=== PATIENT | male | born 1990 | race African-American/Black ===

== ENCOUNTER 2016-07-19 11:11 | Emergency (ER) | payer MEDICAID ==
--- NOTE | 2016-07-19 11:37 | ER Document Report ---
ED Medical Screen (RME) - General Chief Complaint: Chest Pain Stated Complaint: CHEST PAIN Notes: Patient says he is having pain under the left nipple of his chest for the past 5 days. It's a sharp pain that is worse when he moves or takes a deep breath. Has never had this previously. Recalls no injury or unusual activity. No recent cough or cold or chest congestion. No fevers. No leg pain or swelling and no history of blood clots. Negative past medical history. TRAVEL OUTSIDE OF THE [place] IN LAST 30 DAYS: No - Related Data Allergies/Adverse Reactions: No Known Allergies Allergy (Verified 07/19/16 11:14) Past Medical History Neurological Medical History: Reports: Hx Seizures - 2 previously Renal/ Medical History: Denies: Hx Peritoneal Dialysis Psychiatric Medical History: Reports: Hx Depression - Immunizations Immunizations up to date: Yes Hx Diphtheria, Pertussis, Tetanus Vaccination: Yes Physical Exam - Vital signs Vitals: Temp Pulse Resp BP Pulse Ox 97.9 F 73 20 106/72 100 07/19/16 11:24 07/19/16 11:24 07/19/16 11:24 07/19/16 11:24 07/19/16 11:24 Course - Vital Signs Vital signs: Temp Pulse Resp BP Pulse Ox 97.9 F 73 20 106/72 100 07/19/16 11:24 07/19/16 11:24 07/19/16 11:24 07/19/16 11:24 07/19/16 11:24
--- NOTE | 2016-07-19 11:54 | ER Document Report ---
HPI - HPI Patient complains to provider of: left chest pain Pain Level: 4 Context: 26 yo smoker non diabetic, non hypertensive male c/o new sharp stabbing left chest pain under the left nipple of his chest for the past 5 days. Worse when he moves or takes a deep breath. no hx of this, nor injury or unusual activity. No recetn URI. No fever or chjills. No leg swelling or pain, NO hx PER or DVT. No family hx CAD. Associated Symptoms: None Exacerbated by: Movement, Deep breathing Relieved by: Denies Similar symptoms previously: No Recently seen / treated by doctor: No - ROS ROS below otherwise negative: Yes Systems Reviewed and Negative: Yes All other systems reviewed and negative - REPRODUCTIVE Reproductive: DENIES: : - DERM Skin Color: Normal Past Medical History - General Information source: Patient - Social History Smoking Status: Current Every Day Smoker Frequency of alcohol use: None Drug Abuse: Marijuana Lives with: Family Family History: Reviewed & Not Pertinent Patient has suicidal ideation: No Patient has homicidal ideation: No Neurological Medical History: Reports: Hx Seizures - 2 previously Renal/ Medical History: Denies: Hx Peritoneal Dialysis Psychiatric Medical History: Reports: Hx Depression Surgical Hx: Negative - Immunizations Immunizations up to date: Yes Hx Diphtheria, Pertussis, Tetanus Vaccination: Yes Vertical Provider Document - CONSTITUTIONAL Agree With Documented VS: Yes Exam Limitations: No Limitations General Appearance: No Apparent Distress - INFECTION CONTROL TRAVEL OUTSIDE OF THE [place] IN LAST 30 DAYS: No - HEENT HEENT: Normal ENT Exam - NECK Neck: Supple. negative: Lymphadenopathy-Left, Lymphadenopathy-Right - RESPIRATORY Respiratory: Breath Sounds Normal, No Respiratory Distress O2 Sat by Pulse Oximetry: 100 - CARDIOVASCULAR Cardiovascular: Regular Rate, Regular Rhythm - GI/ABDOMEN Gastrointestinal: Abdomen Soft, Abdomen Non-Tender, No Organomegaly - MUSCULOSKELETAL/EXTREMETIES Musculoskeletal/Extremeties: MAEW, FROM, Tender - left pectoral muscle - NEURO Level of Consciousness: Awake, Alert Motor/Sensory: No Motor Deficit, No Sensory Deficit - DERM Integumentary: Warm, Dry, No Rash Course - Re-evaluation Re-evalutation: 07/19/16 12:28 EKG NSR, chest xray negative - Vital Signs Vital signs: Temp Pulse Resp BP Pulse Ox 97.9 F 73 20 106/72 100 07/19/16 11:24 07/19/16 11:24 07/19/16 11:24 07/19/16 11:24 07/19/16 11:24 Discharge - Discharge Clinical Impression: Left-sided chest wall pain Condition: Good Disposition: HOME, SELF-CARE Instructions: Anti-Inflammatory Medication (H), Chest Wall Pain ([facility]), Ultram ([facility]) Additional Instructions: warm compress tylenol motrin to er if worse see family practice doctor for routine care Please complete the patient satisfaction survey if you get one, and return it.. If you do not receive a survey, then you can go to the [facility] website, [email or web address] and place your comments about your very good care. Thank you very much. It was a pleasure being your medical provider today. Prescriptions: Ibuprofen [Motrin 800 mg Tablet] 800 mg PO Q8HP PRN #30 tablet PRN Reason: Tramadol HCl [Ultram 50 mg Tablet] 50 mg PO ASDIR PRN #15 tablet PRN Reason: Forms: Return to Work
[2016-07-19 12:38] VITALS: BP 119/61
--- NOTE | 2016-07-19 20:04 | EKG REPORT ---
SEVERITY:- NORMAL ECG - SINUS RHYTHM : Confirmed by: Katie Llanos MD 19-Jul-2016 20:03:52
== END 2016-07-19 12:37 | disposition home or self-care (01) ==
LOC: ER 11:11
DX: R07.89 Other chest pain (principal); F17.200 Nicotine dependence, unspecified, uncomplicated
CPT/HCPCS: 71020; 93005; 93010; 99285

== ENCOUNTER 2017-05-06 05:41 | Emergency (ER) | payer SELFPAY ==
[2017-05-06 05:54] VITALS: BP 128/57
[2017-05-06] MEDS ORDERED: BUPIVACAINE HCL 0.5 % INJ/PF 30 ML SDV INJ ONE (06:40)
--- NOTE | 2017-05-06 07:11 | ER Document Report ---
ED General - General Chief Complaint: Toothache Stated Complaint: MOUTH PAIN Time Seen by Provider: 05/06/17 06:09 Mode of Arrival: Ambulatory Information source: Patient Notes: 26-year-old male presents with complaints of dental pain, patient notes pain has been going on for a few days. Denies any fevers or chills denies any facial swelling patient appears intoxicated TRAVEL OUTSIDE OF THE [place] IN LAST 30 DAYS: No - HPI Onset: Other Onset/Duration: Persistent Quality of pain: Achy Severity: Mild Pain Level: 1 Associated symptoms: Other Exacerbated by: Food, Other Relieved by: Denies Similar symptoms previously: No Recently seen / treated by doctor: No - Related Data Allergies/Adverse Reactions: No Known Allergies Allergy (Verified 07/19/16 11:14) Past Medical History - Social History Smoking Status: Current Every Day Smoker Cigarette use (# per day): Yes Chew tobacco use (# tins/day): No Smoking Education Provided: No Frequency of alcohol use: Social Drug Abuse: None Family History: Reviewed & Not Pertinent Patient has suicidal ideation: No Patient has homicidal ideation: No Neurological Medical History: Reports: Hx Seizures - 2 previously d/t medication abuse Renal/ Medical History: Denies: Hx Peritoneal Dialysis Psychiatric Medical History: Reports: Hx Depression - Immunizations Immunizations up to date: Yes Hx Diphtheria, Pertussis, Tetanus Vaccination: Yes Review of Systems - Review of Systems Notes: REVIEW OF SYSTEMS: CONSTITUTIONAL : Denies fever, chills, or sweats. Denies recent illness. EENT: Admits to dental pain CARDIOVASCULAR: Denies chest pain. Denies palpitations or racing or irregular heart beat. Denies ankle edema. RESPIRATORY: Denies cough, cold, or chest congestion. Denies shortness of breath, difficulty breathing, or wheezing. GASTROINTESTINAL: Denies abdominal pain or distention. Denies nausea, vomiting , or diarrhea. Denies blood in vomitus, stools, or per rectum. Denies black, tarry stools. Denies constipation. GENITOURINARY: Denies difficulty urinating, painful urination, burning, frequency, blood in urine, or discharge. MUSCULOSKELETAL: Denies back or neck pain or stiffness. Denies joint pain or swelling. SKIN: Denies rash, lesions or sores. HEMATOLOGIC : Denies easy bruising or bleeding. LYMPHATIC: Denies swollen, enlarged glands. NEUROLOGICAL: Denies confusion or altered mental status. Denies passing out or loss of consciousness. Denies dizziness or lightheadedness. Denies headache. Denies weakness or paralysis or loss of use of either side. Denies problems with gait or speech. Denies sensory loss, numbness, or tingling. Denies seizures. PSYCHIATRIC: Denies anxiety or stress. Denies depression, suicidal ideation, or homicidal ideation. ALL OTHER SYSTEMS REVIEWED AND NEGATIVE. Dictation was performed using [employer] voice recognition software PHYSICAL EXAMINATION: GENERAL: Well-appearing, well-nourished and in no acute distress. Patient is drowsy but easily arousable HEAD: Atraumatic, normocephalic. EYES: Pupils equal round and reactive to light, extraocular movements intact, sclera anicteric, conjunctiva are normal. ENT: Teeth 4-5 tenderness to palpation no obvious abscess NECK: Normal range of motion, supple without lymphadenopathy LUNGS: Breath sounds clear to auscultation bilaterally and equal. No wheezes rales or rhonchi. HEART: Regular rate and rhythm without murmurs ABDOMEN: Soft, nontender, nondistended abdomen. No guarding, no rebound. No masses appreciated. Musculoskeletal: Normal range of motion, no pitting or edema. No cyanosis. NEUROLOGICAL: Cranial nerves grossly intact. Normal speech, normal gait. Normal sensory, motor exams PSYCH: Normal mood, normal affect. SKIN: Warm, Dry, normal turgor, no rashes or lesions noted. Physical Exam - Vital signs Vitals: Temp Pulse Resp BP Pulse Ox 97.9 F 98 18 128/57 H 98 05/06/17 05:53 05/06/17 05:53 05/06/17 05:53 05/06/17 05:53 05/06/17 05:53 Course - Re-evaluation Re-evalutation: 05/06/17 08:24 Airways patent physical examination is consistent with tender teeth on palpation consistent with infectious process caries, patient otherwise looks well is in no distress, his family member brought the patient in and they will be driving him home. A infraorbital nerve block was performed with complete resolution of patient's pain After performing a Medical Screening Examination, I estimate there is LOW risk for a DEEP SPACE INFECTION (e.g., AMITA'S ANGINA OR RETROPHARYNGEAL ABSCESS), MENINGITIS, INTRACRANIAL HEMORRHAGE, or AIRWAY COMPROMISE, thus I consider the discharge disposition reasonable. Also, there is no evidence or peritonitis, sepsis, or toxicity. I have reevaluated this patient multiple times and no significant life threatening changes are noted. The patient and I have discussed the diagnosis and risks, and we agree with discharging home with close follow-up with the understanding that symptoms and presentations can change. We also discussed returning to the Emergency Department immediately if new or worsening symptoms occur. We have discussed the symptoms which are most concerning (e.g., changing or worsening pain, trouble swallowing or breathing, neck stiffness or fever) that necessitate immediate return. - Vital Signs Vital signs: Temp Pulse Resp BP Pulse Ox 97.9 F 98 18 128/57 H 98 05/06/17 05:53 05/06/17 05:53 05/06/17 05:53 05/06/17 05:53 05/06/17 05:53 Procedures - Additional Procedures infraorbital nerve block Time performed: 07:15 - right sided infraorbital nerbve block compelte with 10 cc of 0.5% sensorcaine with no complications Discharge - Discharge Clinical Impression: Pain, dental, Dental caries Condition: Stable Disposition: HOME, SELF-CARE Instructions: [facility], Toothache ([facility]) Prescriptions: Naproxen 500 mg PO Q8 #14 tablet Penicillin V Potassium [Penicillin Vk 250 mg Tablet] 500 mg PO Q6 10 Days #40 tablet
== END 2017-05-06 07:22 | disposition home or self-care (01) ==
LOC: ER 05:41
PROC: 3E0T3BZ Introduction of Anesthetic Agent into Peripheral Nerves and Plexi, Percutaneous Approach (ICD-10-PCS; principal; 2017-05-06)
DX: K02.9 Dental caries, unspecified (principal); F17.210 Nicotine dependence, cigarettes, uncomplicated
CPT/HCPCS: 99282

== ENCOUNTER 2018-10-17 03:56 | Emergency (ER) | payer SELFPAY ==
[2018-10-17] MEDS ORDERED: ACETAMINOPHEN 325 MG TABLET PO ONE (06:04)
[2018-10-17] MEDS ORDERED: DEXAMETHASONE SOD PHOS INJ 10 MG/1 ML VIAL IM ONE (06:04)
[2018-10-17] MEDS ORDERED: NYSTATIN/DEXAMETH/DIPHEN SUSP 120 ML PO ONE ×2 (06:04→06:29)
[2018-10-17] MEDS ORDERED: IBUPROFEN 600 MG TABLET PO ONE (06:04)
--- NOTE | 2018-10-17 06:07 | ER Document Report ---
Addendum entered and electronically signed by LESLIE RODRIGUEZ PA-C 10/17/18 07:10: Discharge - Discharge Clinical Impression: Sore throat Condition: Good Disposition: HOME, SELF-CARE Additional Instructions: Your strep test is negative. Your symptoms are likely due to an viral infection and will resolve in the next 1-2 weeks. You have also been given a dose of steroids to help with your throat discomfort. Please continue to take ibuprofen 600 mg every 6 hours or Tylenol 1000 mg every 6 hours as needed for throat discomfort. You can also gargle with salt water. Continue to drink plenty of fluids. Follow-up with your primary care doctor in the next several days. Return if you become unable to swallow, have difficulty breathing, pass out, have persistent vomiting that prevents you from being able to tolerate fluids, or have any other symptoms that are concerning to you. Forms: Return to Work Original Note: HPI - HPI Patient complains to provider of: sore throat Time Seen by Provider: 10/17/18 05:56 Pain Level: 4 Context: 28-year-old healthy male presents to the emergency department with chief complaint of a sore throat x3 days. He said he noticed that it was starting to get a little scratchy on Sunday and has gotten progressively worse to the point now where he is having difficulty swallowing and has tender lymph nodes on the right side. He is able to handle his secretions. He denies fevers or chills, denies photophobia, denies neck stiffness, denies shortness of breath or chest pain, denies rhinorrhea or cold-like symptoms, denies abdominal pain, denies nausea/vomiting/diarrhea/constipation. No other complaints. - REPRODUCTIVE Reproductive: DENIES: : Past Medical History - Social History Smoking Status: Unknown if Ever Smoked Family History: Reviewed & Not Pertinent Neurological Medical History: Reports: Hx Seizures - 2 previously d/t medication abuse Renal/ Medical History: Denies: Hx Peritoneal Dialysis Psychiatric Medical History: Reports: Hx Depression - Immunizations Immunizations up to date: Yes Hx Diphtheria, Pertussis, Tetanus Vaccination: Yes Vertical Provider Document - CONSTITUTIONAL Notes: PHYSICAL EXAMINATION: Reviewed vital signs and charting by RN GENERAL: Alert, interacts well. No acute distress. HEAD: Normocephalic, atraumatic. EYES: Pupils equal and round. Extraocular movements intact. ENT: Oral mucosa moist, tongue midline. Group tonsillar hypertrophy in the right side, 1+ tonsillar hypertrophy right side, erythematous on the right side with a small on the right tonsil, uvula midline, no evidence of a [employer] NECK: Full range of motion. Trachea midline. LUNGS: Clear to auscultation bilaterally, no wheezes, rales, or rhonchi. No respiratory distress. HEART: Regular rate and rhythm. No murmur ABDOMEN: soft, non-tender. No distention. Bowel sounds present EXTREMITIES: Moves all 4 extremities spontaneously. No edema, No cyanosis. PSYCH: Normal affect, normal mood. SKIN: Warm, dry, normal turgor. No rashes or lesions noted. - INFECTION CONTROL TRAVEL OUTSIDE OF THE [place] IN LAST 30 DAYS: No Course - Re-evaluation Re-evalutation: 10/17/18 07:02 RPresentation of several days of sore throat in an otherwise well-appearing patient. Rapid strep is negative. History and exam are not consistent with a retropharyngeal abscess or peritonsillar abscess. Airway is patent. No difficulty handling oral secretions. Vitals within normal limits. Patient was treated with a dose of dexamethasone and advised on symptomatic care. Suspect likely viral pharyngitis. At this time will discharge with return precautions and follow-up recommendations. Verbal discharge instructions given a the bedside and opportunity for questions given. Medication warnings reviewed. Patient is in agreement with this plan and has verbalized understanding of return precautions and the need for primary care follow-up in the next 24-72 hours. - Vital Signs Vital signs: Temp Pulse Resp BP Pulse Ox 98.0 F 75 18 138/76 H 100 10/17/18 05:54 10/17/18 05:54 10/17/18 05:54 10/17/18 05:54 10/17/18 05:54 Discharge - Discharge Clinical Impression: Sore throat Condition: Good Disposition: HOME, SELF-CARE Additional Instructions: Your strep test is negative. Your symptoms are likely due to an viral infection and will resolve in the next 1-2 weeks. You have also been given a dose of steroids to help with your throat discomfort. Please continue to take ibuprofen 600 mg every 6 hours or Tylenol 1000 mg every 6 hours as needed for throat discomfort. You can also gargle with salt water. Continue to drink plenty of fluids. Follow-up with your primary care doctor in the next several days. Return if you become unable to swallow, have difficulty breathing, pass out, have persistent vomiting that prevents you from being able to tolerate fluids, or have any other symptoms that are concerning to you.
[2018-10-17 07:31] VITALS: BP 117/63
== END 2018-10-17 07:34 | disposition home or self-care (01) ==
LOC: ER 03:56
DX: J02.9 Acute pharyngitis, unspecified (principal); R13.10 Dysphagia, unspecified
CPT/HCPCS: 99283; 96372; 87070; 87880; 87077; J1100; J3490

== ENCOUNTER 2018-11-11 11:03 | Emergency (ER) | payer SELFPAY ==
--- NOTE | 2018-11-11 12:07 | ER Document Report ---
HPI - HPI Time Seen by Provider: 11/11/18 12:02 Pain Level: 3 Notes: Patient is an otherwise healthy 28-year-old male presented to the emergency department chief complaint of dysuria. Patient reports symptoms have been going on for 3 days. He denies any penile discharge. He also reports mild low back pain. He thinks he has a urinary tract infection. Patient denies possibility of any STDs, states he was tested 3 months ago. He denies any new partners. - REPRODUCTIVE Reproductive: DENIES: : Past Medical History - General Information source: Patient - Social History Smoking Status: Never Smoker Frequency of alcohol use: None Drug Abuse: None Family History: Reviewed & Not Pertinent Neurological Medical History: Reports: Hx Seizures - 2 previously d/t medication abuse Renal/ Medical History: Denies: Hx Peritoneal Dialysis Psychiatric Medical History: Reports: Hx Depression - Immunizations Immunizations up to date: Yes Hx Diphtheria, Pertussis, Tetanus Vaccination: Yes Vertical Provider Document - CONSTITUTIONAL Notes: PHYSICAL EXAMINATION: GENERAL: Well-appearing, well-nourished and in no acute distress. HEAD: Atraumatic, normocephalic. EYES: Pupils equal round and reactive to light, extraocular movements intact, sclera anicteric, conjunctiva are normal. ENT: Nares patent, oropharynx clear without exudates. Moist mucous membranes. NECK: Normal range of motion, supple without lymphadenopathy LUNGS: Breath sounds clear to auscultation bilaterally and equal. No wheezes rales or rhonchi. HEART: Regular rate and rhythm without murmurs ABDOMEN: Soft, nontender, nondistended abdomen. No guarding, no rebound. No masses appreciated. Musculoskeletal: Normal range of motion, no pitting or edema. No cyanosis. NEUROLOGICAL: Cranial nerves grossly intact. Normal speech, normal gait. Normal sensory, motor exams PSYCH: Normal mood, normal affect. SKIN: Warm, Dry, normal turgor, no rashes or lesions noted. - INFECTION CONTROL TRAVEL OUTSIDE OF THE [place] IN LAST 30 DAYS: No Course - Re-evaluation Re-evalutation: Patient appears well, nontoxic, alert, oriented and answering all questions appropriately. He has no CVA tenderness. He is afebrile and all other vital signs are within normal limits. Urinalysis appears normal. Chlamydia and gonorrhea testing are still pending. Patient declines prophylactic treatment. He will be started on a 3-day course of antibiotics for cystitis. Urine culture pending. - Vital Signs Vital signs: Temp Pulse Resp BP Pulse Ox 97.3 F 86 17 126/55 H 99 11/11/18 11:34 11/11/18 11:34 11/11/18 11:34 11/11/18 11:34 11/11/18 11:34 Discharge - Discharge Clinical Impression: Cystitis Condition: Stable Disposition: HOME, SELF-CARE Additional Instructions: Your urine does not appear to be grossly infected. Considering you are having symptoms consistent with a UTI I will start you on a 3-day course of antibiotics pending the urine culture. You have declined prophylactic treatment for STDs. Someone will call you if there is any abnormality with any of your testing. Please follow-up with your primary care provider, return to the emergency department if you develop worsening symptoms to include worsening abdominal pain, back pain, development of fever or persistent vomiting. Prescriptions: Cephalexin [Cephalexin 500 MG Tablet] 500 mg PO BID #6 tab
[2018-11-11 12:25] LABS: APPEARANCE,URINE CLEAR; BILIRUBIN,URINE NEGATIVE (NEGATIVE); COLOR,URINE COLORLESS; GLUCOSE, URINE NEGATIVE (NEGATIVE); KETONES,URINE NEGATIVE (NEGATIVE); LEUKOCYTE ESTERASE,URINE NEGATIVE (NEGATIVE); NITRITE,URINE NEGATIVE (NEGATIVE); PROTEIN,URINE NEGATIVE (NEGATIVE); URINE SPECIFIC GRAVITY 1.002; UROBILINOGEN,URINE NEGATIVE mg/dL (<2.0)
[2018-11-11 13:51] VITALS: BP 119/70
[2018-11-11 13:56] LABS: CHLAM PCR NOT DETECTED (NOT DETECT)
== END 2018-11-11 14:11 | disposition home or self-care (01) ==
LOC: ER 11:03
DX: N30.00 Acute cystitis without hematuria (principal); R30.0 Dysuria; M54.5 Low back pain
CPT/HCPCS: 81001; 87491; 87591; 99283

== ENCOUNTER 2019-01-28 04:16 | Observation (INO) | payer SELFPAY ==
[2019-01-28] MEDS ORDERED: KETOROLAC TROMETHAMINE INJ/PF 30 MG/1 ML SDV IV ONE (05:16)
--- NOTE | 2019-01-28 05:17 | ER Document Report ---
ED Medical Screen (RME) - General Chief Complaint: Epigastric Pain Stated Complaint: LEFT ARM PAIN Time Seen by Provider: 01/28/19 05:11 Notes: 28-year-old male with chief complaint of swelling and tenderness in the left antecubital area that has worsened over the past 48 hours. He denies recent IV drug abuse but does report a history of IV drug abuse, denies that he thinks the needle is in the arm. He also states he has been getting intermittent pains in his chest. He denies fever, nausea or vomiting, other complaints. He denies any diagnosed medical history. TRAVEL OUTSIDE OF THE [place] IN LAST 30 DAYS: No - Related Data Allergies/Adverse Reactions: No Known Allergies Allergy (Verified 07/19/16 11:14) Past Medical History Neurological Medical History: Reports: Hx Seizures - 2 previously d/t medication abuse Renal/ Medical History: Denies: Hx Peritoneal Dialysis Psychiatric Medical History: Reports: Hx Depression - Immunizations Immunizations up to date: Yes Hx Diphtheria, Pertussis, Tetanus Vaccination: Yes Physical Exam - Extremities General upper extremity: Other - Swelling in the left antecubital area with tenderness and warmth. Difficulty straightening the arm at the elbow into full extension. Normal distal neurovascular exam Course - Re-evaluation Re-evalutation: I have greeted and performed a rapid initial assessment of this patient. A comprehensive ED assessment and evaluation of the patient, analysis of test results and completion of the medical decision making process will be conducted by additional ED providers.
[2019-01-28 06:02] LABS: ABSOLUTE EOSINOPHILS # (AUTO) 0.4 10^3/uL (0.0-0.6); ABSOLUTE LYMPHOCYTES (AUTO) 1.3 10^3/uL (0.5-4.7); ABSOLUTE MONOCYTES (AUTO) 0.5 10^3/uL (0.1-1.4); ABSOLUTE NEUT (AUTO) 3.2 10^3/uL (1.7-8.2); BASOPHILS % (AUTO) 0.4 % (0-2); EOSINOPHILS % (AUTO) 6.9 % (0-6); HEMATOCRIT 38.6 % (37.9-51.0); HEMOGLOBIN 13.1 g/dL (13.5-17.0); LYMPHOCYTES % (AUTO) 24.2 % (13-45); MEAN CORPUSCULAR HEMOGLOBIN 32.5 pg (27.0-33.4); MEAN CORPUSCULAR HGB CONC 33.8 g/dL (32.0-36.0); MEAN CORPUSCULAR VOLUME 96 fl (80-97); MONOCYTES % (AUTO) 8.9 % (3-13); PLATELET COUNT 251 10^3/uL (150-450); RED BLOOD COUNT 4.02 10^6/uL (4.35-5.55); RED CELL DISTRIBUTION WIDTH 13.2 % (11.5-14.0); SEGMENTED NEUTROPHILS % (AUTO) 59.6 % (42-78); TOTAL CELLS COUNTED % (AUTO) 100 %; WHITE BLOOD COUNT 5.4 10^3/uL (4.0-10.5)
--- NOTE | 2019-01-28 06:30 | RADIOLOGY REPORT (SQ) ---
EXAM DESCRIPTION: XR CHEST 1 VIEW COMPLETED DATE/TME: 01/28/2019 05:15 CLINICAL HISTORY: chest pain COMPARISON: 07/19/2016 FINDINGS: Single frontal view of the chest. Cardiomediastinal silhouette: Normal size and contour. Lungs: No consolidation, pneumothorax, or pleural effusion. Bones: No acute osseous abnormality. Upper abdomen: No abnormality identified. IMPRESSION: 1. No acute pulmonary process identified.
--- NOTE | 2019-01-28 06:32 | RADIOLOGY REPORT (SQ) ---
EXAM DESCRIPTION: XR ELBOW 3 VIEWS COMPLETED DATE/TME: 01/28/2019 05:15 CLINICAL HISTORY: 28 years, Male, swelling, pain; needle in arm? COMPARISON: None. FINDINGS: 3 views of the left elbow. No acute fracture or dislocation. Normal osseous mineralization. No definite joint effusion. Edema in the ventral subcutaneous soft tissues. No radiopaque foreign body. IMPRESSION: 1. No acute fracture. 2. Edema in the ventral subcutaneous soft tissues. No radiopaque foreign body. copyright 2010 [employer]- All Rights Reserved
[2019-01-28] MEDS ORDERED: RINGERS SOLUTION,LACTATED 1,000 ML IV ONE (06:51)
[2019-01-28 06:56] LABS: ALBUMIN 3.4 g/dL (3.5-5.0); ALKALINE PHOSPHATASE 60 U/L (38-126); ANION GAP 7 (5-19); ASPARTATE AMINO TRANSFERASE 25 U/L (17-59); BILIRUBIN,DIRECT 0.1 mg/dL (0.0-0.4); BILIRUBIN,TOTAL 0.5 mg/dL (0.2-1.3); BLOOD UREA NITROGEN 8 mg/dL (7-20); CALCIUM 8.8 mg/dL (8.4-10.2); CARBON DIOXIDE 26 mmol/L (22-30); CHLORIDE 106 mmol/L (98-107); GLUCOSE 86 mg/dL (75-110); POTASSIUM 4.1 mmol/L (3.6-5.0); TOTAL PROTEIN 6.2 g/dL (6.3-8.2)
--- NOTE | 2019-01-28 07:08 | ER Document Report ---
ED General - General Chief Complaint: Epigastric Pain Stated Complaint: LEFT ARM PAIN Time Seen by Provider: 01/28/19 05:11 TRAVEL OUTSIDE OF THE [place] IN LAST 30 DAYS: No - HPI Context: Patient presents with 2 days of worsening swelling and pain in his left upper extremity antecubital area IV drugs over one year ago. No recent fevers or chills no medical problems. He also has been having intermittent sharp epigastric pain. He denies any chest pain. His last bowel movements 2 days ago no nausea vomiting or diarrhea. No cough or congestion. - Related Data Allergies/Adverse Reactions: No Known Allergies Allergy (Verified 07/19/16 11:14) Past Medical History - Social History Smoking Status: Current Every Day Smoker Family History: Reviewed & Not Pertinent Patient has suicidal ideation: No Patient has homicidal ideation: No Neurological Medical History: Reports: Hx Seizures - 2 previously d/t medication abuse Renal/ Medical History: Denies: Hx Peritoneal Dialysis Psychiatric Medical History: Reports: Hx Depression - Immunizations Immunizations up to date: Yes Hx Diphtheria, Pertussis, Tetanus Vaccination: Yes Review of Systems - Review of Systems Constitutional: No symptoms reported EENT: No symptoms reported Cardiovascular: No symptoms reported Respiratory: See HPI Gastrointestinal: See HPI Genitourinary: No symptoms reported Male Genitourinary: No symptoms reported Musculoskeletal: No symptoms reported Skin: No symptoms reported Hematologic/Lymphatic: No symptoms reported Neurological/Psychological: No symptoms reported Physical Exam - Vital signs Vitals: Temp Pulse Resp BP Pulse Ox 97.6 F 97 18 123/101 H 97 01/28/19 04:30 01/28/19 04:30 01/28/19 04:30 01/28/19 04:30 01/28/19 04:30 - General General appearance: Appears well, Alert - HEENT Head: Normocephalic, Atraumatic - Respiratory Respiratory status: No respiratory distress Chest status: Nontender Breath sounds: Normal Chest palpation: Normal - Cardiovascular Rhythm: Regular Heart sounds: Normal auscultation Murmur: No Friction rub: No Hosea's crunch: No Gallop: None auscultated - Abdominal Inspection: Normal Distension: No distension Bowel sounds: Normal Tenderness: Other - Reproducible sharp epigastric tenderness to palpation. - Back Back: Normal, Nontender - Extremities General upper extremity: Other - Approximately 4 x 3 inch tender fluctuant warm erythematous area over left antecubital area. Bedside ultrasound reveals anechoic area consistent with abscess. General lower extremity: Normal inspection, Normal ROM Course - Re-evaluation Re-evalutation: 01/28/19 07:06 Patient well-appearing with normal vitals no recent fevers chills afebrile. He has a large abscess in his antecubital area. Denies IV drug use for over a year but with his history there is concern this could be related to IV drug use. He denies any fevers chills denies any chest pain he does have reproducible sharp epigastric pain and no chest pain do not feel this is consistent with pericarditis or any other concerning cardiac pathology. He also does not have any friction rub with normal auscultation of his heart. Pending formal ultrasound of his upper extremity at this time and will contact surgery based on results. 01/28/19 09:[address] Yu, he will consult on the patient emergency room and will likely admit based on her conversation - Vital Signs Vital signs: Temp Pulse Resp BP Pulse Ox 97.6 F 97 18 123/101 H 97 01/28/19 04:30 01/28/19 04:30 01/28/19 04:30 01/28/19 04:30 01/28/19 04:30 - Laboratory Result Diagrams: 01/28/19 05:46 01/28/19 06:20 Laboratory results interpreted by me: 01/28/19 01/28/19 05:46 06:20 RBC 4.02 L Hgb 13.1 L Eos % (Auto) 6.9 H Total Protein 6.2 L Albumin 3.4 L Discharge - Discharge Clinical Impression: Abscess Condition: Good Disposition: ADMITTED INPATIENT Admitting Provider: [facility] Unit Admitted: Surgical Floor
--- NOTE | 2019-01-28 07:36 | EKG REPORT ---
SEVERITY:- NORMAL ECG - SINUS RHYTHM : Confirmed by: Sacha Castillo MD 28-Jan-2019 07:35:59
--- NOTE | 2019-01-28 08:29 | RADIOLOGY REPORT (SQ) ---
EXAM DESCRIPTION: U/S EXTREMITY NONVASCULAR LTD COMPLETED DATE/TIME: 01/28/2019 8:11 am REASON FOR STUDY: LUQ abscess, antecubital area COMPARISON: None. TECHNIQUE: Dynamic and static grayscale and color Doppler images of the left antecubital fossa were obtained. LIMITATIONS: None. FINDINGS: There is a heterogeneous fluid collection in the left antecubital fossa that measures 4.1 x 3.5 x 1.9 cm ; there is increased color Doppler flow around the collection and subcutaneous edema. IMPRESSION: Complex fluid collection in the left antecubital fossa with surrounding hyperemia and loyd bcutaneous edema. The collection is concerning for an abscess. TECHNICAL DOCUMENTATION: JOB ID: [id number] [employer]- All Rights Reserved Reading location - IP/workstation name: [email or web address]
[2019-01-28] MEDS ORDERED: VANCOMYCIN HCL INJ 1000 MG VIAL IV ONE (09:33)
[2019-01-28] MEDS ORDERED: PIPERACILLIN/TAZOBACTAM 3.375 GM VIAL IV ONE (09:33)
--- NOTE | 2019-01-28 11:32 | RADIOLOGY REPORT (SQ) ---
EXAM DESCRIPTION: CTA CHEST COMPLETED DATE/TIME: 01/28/2019 11:14 am REASON FOR STUDY: IV drug use, chest pain COMPARISON: None. TECHNIQUE: CT scan of the chest performed using helical scanning technique with dynamic intravenous contrast injection. Images reviewed with lung, soft tissue and bone windows. Reconstructed coronal and sagittal MPR images reviewed. Additional 3 dimensional post-processing performed to develop Maximal Intensity Projection images (PR P). All images stored on PACS. All CT scanners at this facility use dose modulation, iterative reconstruction, and/or weight based d osing when appropriate to reduce radiation dose to as low as reasonably achievable (ALARA). [facility]: Dose Right [facility]: CareDose [facility]: Dose Right [facility]: Teradose 4D [facility]: [employer] CONTRAST TYPE AND DOSE: contrast/concentration: Isovue 350.00 mg/ml; Total Contrast Delivered: 55.0 ml; Total Saline Delivered: 70.0 ml Contrast bolus optimized for the pulmonary arteries. Not diagnostic for the aorta. RENAL FUNCTION: None required. The patient is less than 50 years old. RADIATION DOSE: CT Rad equipment meets quality standard of care and radiation dose reduction techniq ues were employed. CTDIvol: 9.9 - 14.3 mGy. DLP: 575 mGy-cm. . LIMITATIONS: None. FINDINGS: LUNGS AND PLEURA: No masses, infiltrates, or pneumothorax. No pleural effusions or pleura l calcifications. AORTA AND GREAT VESSELS: No aneurysm. Contrast bolus not optimized for the aorta. HEART: No pericardial effusion. No significant coronary artery calcifications. PULMONARY ARTERIES: No emboli visualized in the main pulmonary arteries or the segmental branches. HILAR AND MEDIASTINAL STRUCTURES: No identified masses or abnormal nodes. HARDWARE: None in the chest. UPPER ABDOMEN: No significant findings. Limited exam. THYROID AND OTHER SOFT TISSUES: No masses. No adenopathy. BONES: No acute or significant finding. 3D MIPS: Confirm above findings. OTHER: No other significant finding. IMPRESSION: Negative examination for pulmonary embolism. COMMENT: Quality ID # [id number]: Final reports with documentation of one or more dose reduction techniques (e.g., Automated exposure control, adjustment of the mA and/or kV according to patient size, use of iterative reconstruction technique) TECHNICAL DOCUMENTATION: JOB ID: [id number] [employer]- All Rights Reserved Reading location - IP/workstation name: [email or web address]
[2019-01-28 12:41] LABS: URINE AMPHETAMINES SCREEN NEGATIVE; URINE BARBITURATES SCREEN NEGATIVE; URINE BENZODIAZEPINES SCREEN NEGATIVE; URINE COCAINE SCREEN UNCONFIRMED POSITIVE; URINE MARIJUANA (THC) SCREEN NEGATIVE; URINE METHADONE SCREEN NEGATIVE; URINE PHENCYCLIDINE SCREEN NEGATIVE
--- NOTE | 2019-01-28 13:00 | PDOC H&P ---
History of Present Illness Admission Date/PCP: 01/28/19 09:50 Patient complains of: Pain at the antecubital fossa of the left arm History of Present Illness: CARY PARK is a 28 year old male presenting with couple day history of swelling and tenderness and pain at the left antecubital fossa. Uncertain of the etiology. Patient denies any IV drug abuse. he denies any fever nor chills. He does complain of intermittent sharp lower chest pain without short ness of breath. Past Medical History Medical History: None Neurological Medical History: Reports: Seizures - 2 previously d/t medication abuse Psychiatric Medical History: Reports: Depression Past Surgical History Past Surgical History: Reports: None Social History Smoking Status: Current Every Day Smoker Frequency of Alcohol Use: Social Hx Recreational Drug Use: Yes Drugs: Marijuana Hx Prescription Drug Abuse: No Family History Family History: Reviewed & Not Pertinent Parental Family History Reviewed: Yes Children Family History Reviewed: Yes Sibling(s) Family History Reviewed.: Yes Medication/Allergy Allergies/Adverse Reactions: No Known Allergies Allergy (Verified 07/19/16 11:14) Review of Systems Cardiovascular: PRESENT: chest pain Integumentary: PRESENT: as per HPI Physical Exam Vital Signs: Temp Pulse Resp BP Pulse Ox 97.6 F 97 18 123/101 H 97 01/28/19 04:30 01/28/19 04:30 01/28/19 04:30 01/28/19 04:30 01/28/19 04:30 Intake & Output 01/27/19 01/28/19 01/29/19 06:59 06:59 06:59 Intake Total 1000 Balance 1000 Weight 72.121 kg General appearance: PRESENT: no acute distress, cooperative Eye exam: PRESENT: conjunctiva pink Neck exam: PRESENT: other - No masses and no tenderness. Respiratory exam: PRESENT: clear to auscultation kenji Cardiovascular exam: PRESENT: RRR GI/Abdominal exam: PRESENT: other - Soft, nondistended, nontender to palpation. Extremities exam: PRESENT: other - Left antecubital fossa region with approximately 5 cm region of erythema with underlying fluctuance and induration and marked tenderness. No petechiae nor splinter hemorrhages. Neurological exam: PRESENT: alert, awake Psychiatric exam: PRESENT: appropriate affect Results Laboratory Results: 01/28/19 05:46 01/28/19 06:20 01/28/19 01/28/1919 05:46 05:46 06:20 WBC 5.4 RBC 4.02 L Hgb 13.1 L Hct 38.6 MCV 96 MCH 32.5 MCHC 33.8 RDW 13.2 Plt Count 251 Seg Neutrophils % 59.6 Sodium Cancelled 139.4 Potassium Cancelled 4.1 Chloride Cancelled 106 Carbon Dioxide Cancelled 26 Anion Gap Cancelled 7 BUN Cancelled 8 Creatinine Cancelled 0.85 Est GFR ( Amer) Cancelled > 60 Est GFR (Non-Af Amer) Cancelled Glucose Cancelled 86 Calcium Cancelled 8.8 Total Bilirubin Cancelled 0.5 AST Cancelled 25 Alkaline Phosphatase Cancelled 60 Total Protein Cancelled 6.2 L Albumin Cancelled 3.4 L Lipase Cancelled 24.8 01/28/19 01/28/19 05:46 06:20 Troponin I Cancelled < 0.012 Impressions: Chest X-Ray 01/28/19 05:15 IMPRESSION: 1. No acute pulmonary process identified. Elbow X-Ray 01/28/19 05:15 IMPRESSION: 1. No acute fracture. 2. Edema in the ventral subcutaneous soft tissues. No radiopaque foreign body. copyright 2010 [employer]- All Rights Reserved Extremity Ultrasound 01/28/19 07:01 IMPRESSION: Complex fluid collection in the left antecubital fossa with surrounding hyperemia and subcutaneous edema. The collection is concerning for an abscess. Assessment & Plan - Diagnosis (1) Abscess Is this a current diagnosis for this admission?: Yes Plan: Abscess at the left antecubital fossa. We will plan debridement in the operating room. I discussed with the patient the risk and benefits of procedure including risk of infection, bleeding, adjacent structure injury such as nerve or vascular injury, prolonged wound healing. Patient understands and agrees to proceed. He adamantly denies IV drug abuse and I do not see any track bradshaw. (2) Chest pain Is this a current diagnosis for this admission?: Yes Plan: EKG and chest CT were unremarkable. We will proceed with his incision and drainage procedure.
--- NOTE | 2019-01-28 13:50 | EKG REPORT ---
SEVERITY:- NORMAL ECG - SINUS RHYTHM : Confirmed by: Sacha Castillo MD 28-Jan-2019 13:50:20
[2019-01-28] MEDS ORDERED: MIDAZOLAM 2 MG/2 ML INJ ONE ×2 (13:55→14:04)
[2019-01-28] MEDS ORDERED: LIDOCAINE 2% INJ-PF (20 MG/ML) 10 ML AMPUL ONE (13:55)
[2019-01-28] MEDS ORDERED: PROPOFOL INJ 200 MG/20 ML VIAL IV ONE ×2 (13:55→15:19)
[2019-01-28] MEDS ORDERED: FENTANYL CITRATE INJ/PF 100 MCG/2 ML AMPUL ONE (13:55)
[2019-01-28] MEDS ORDERED: ONDANSETRON HCL INJ/PF 4 MG/2 ML SDV ONE (13:55)
[2019-01-28] MEDS ORDERED: LIDOCAINE 2%/EPINEPHRINE INJ 20 ML VIAL ONE (14:03)
[2019-01-28] MEDS ORDERED: ROPIVACAINE HCL 0.5% INJ/PF (5 MG/1 ML) 30 ML SDV ONE (14:04)
[2019-01-28] MEDS ORDERED: LIDOCAINE 2% INJ (20 MG/ML) 20 ML MDV ONE (14:05)
[2019-01-28] MEDS ORDERED: LIDOCAINE 1% INJ-PF (10 MG/ML) 30 ML SDV ONE (14:06)
[2019-01-28] MEDS ORDERED: BUPIVACAINE HCL 0.25 % INJ/PF (2.5 MG/1 ML) 30 ML VIAL ONE (14:06)
[2019-01-28] MEDS ORDERED: LIDOCAINE 1%/EPINEPHRINE INJ 20 ML VIAL ONE (14:27)
[2019-01-28] MEDS ORDERED: DIPHENHYDRAMINE HCL 50 MG/ML VIAL IV PRN (14:46)
[2019-01-28] MEDS ORDERED: ONDANSETRON HCL INJ/PF 4 MG/2 ML SDV IV PRN (14:46)
[2019-01-28] MEDS ORDERED: PROMETHAZINE HCL INJ 25 MG/1 ML VIAL IV PRN (14:46)
[2019-01-28] MEDS ORDERED: FENTANYL CITRATE INJ/PF 100 MCG/2 ML AMPUL IV PRN ×3 (14:46)
[2019-01-28] MEDS ORDERED: ONDANSETRON 4 MG TAB.RAPDIS PO PRN (15:15)
[2019-01-28] MEDS ORDERED: NORMAL SALINE 1000 ML 1,000 ML IV PRN (15:15)
--- NOTE | 2019-01-28 15:15 | Operative Report ---
Operative Report DATE OF SURGERY: 01/28/19 PREOPERATIVE DIAGNOSIS: Left antecubital fossa abscess POSTOPERATIVE DIAGNOSIS: Left antecubital fossa abscess OPERATION: Left antecubital fossa abscess incision and drainage SURGEON: ALMA DOTSON ANESTHESIA: Other - Regional block TISSUE REMOVED OR ALTERED: Pus sent for Gram stain and culture COMPLICATIONS: None ESTIMATED BLOOD LOSS: Minimal INTRAOPERATIVE FINDINGS: Approximately a 5 x 4 cm abscess cavity at the left antecubital fossa. PROCEDURE: Informed consent was obtained. Patient was brought to the operating room. Patient underwent a regional block. Patient's left arm was prepped and draped in usual sterile fashion. Patient had a region of fluctuance with erythema and induration at the antecubital fossa. A longitudinally oriented incision was made over the antecubital fossa. Using a needle I located a abscess cavity with aspiration of copious amount of pus. The abscess cavity was unroofed. There was a overlying antecubital vein which was clamped and divided. Due to the marked edema around this region I could not feel the brachial artery, however clear triphasic signals were heard in the region of the brachial artery proximally and distal to the abscess. Triphasic Doppler signals were clearly heard at the ulnar and radial arteries as well. The abscess cavity was probed to make sure there were no undrained sinus tracts. The abscess cavity measured about 5 x 4 cm in size. Copious amount of pus was evacuated. The cavity was then irrigated irrigant aspirated out. Hemostasis appeared to be good. The wound was then packed with gauze. Patient tolerated procedure well with no apparent complications and was taken to the recovery area in stable condition.
[2019-01-28] MEDS ORDERED: VANCOMYCIN HCL 0 MG in DEXTROSE 5%-WATER 250 ML IV NR (15:30)
[2019-01-28] MEDS: VANCOMYCIN HCL 1,000 MG in DEXTROSE 5%-WATER 250 ML IV SCH ×2 (16:31→21:04)
[2019-01-28] MEDS ORDERED: INFLUENZA QUAD (6MOS+) 2019-20 VAC 0.5 ML SYR IM ONE (16:41)
[2019-01-28] MEDS: OXYCODONE-ACETAMINOPHEN 5-325 MG TABLET PO PRN ×2 (17:41→23:51)
[2019-01-28] MEDS: PIPERACILLIN SODIUM/TAZOBACTAM 3.375 GM in NORMAL SALINE 100 ML IV SCH ×2 (18:05→23:52)
[2019-01-29] MEDS: PIPERACILLIN SODIUM/TAZOBACTAM 3.375 GM in NORMAL SALINE 100 ML IV SCH ×2 (05:06→10:59)
[2019-01-29] MEDS: VANCOMYCIN HCL 1,000 MG in DEXTROSE 5%-WATER 250 ML IV SCH ×2 (05:07→13:03)
[2019-01-29] MEDS: OXYCODONE-ACETAMINOPHEN 5-325 MG TABLET PO PRN (08:23)
[2019-01-29] MEDS: IBUPROFEN 800 MG TABLET PO SCH ×2 (12:38→16:26)
--- NOTE | 2019-01-29 14:55 | PDOC DISCHARGE SUMMARY ---
General - Admit/Disc Date/PCP Admission Date/Primary Care Provider: 01/28/19 09:50 Discharge Date: 01/29/19 - Discharge Diagnosis Final Diagnosis: Abscess of the left antecubital fossa. - Assessment Summary: This is a 28-year-old male with new onset abscess of the left antecubital fossa. Yesterday, the patient was taken to the operating room where incision and drainage was performed. The patient reports pain today, however his induration and erythema are much improved. He has no active purulence. On examination today, the wound appears clean. The patient is ambulating and tolerating a diet. At this time it is felt that he has reached maximal hospital benefit and is fit for discharge. Discharge instructions: Discharge home. Diet as tolerated. Activity: Nonstrenuous. Follow-up with [facility] in 7 to 10 days. Bactrim DS, 2 tabs p.o. twice daily. Percocet 5/3 2 5 mg p.o. every 6 hours as needed for pain. Ibuprofen 800 mg p.o. 3 times daily with meals. Okay to shower. - Additional Information Resuscitation Status: Full Code Discharge Diet: As Tolerated Discharge Activity: Balance Activity w/Rest, No Lifting Over 10 Pounds Referrals: [facility] [Provider Group] Home Medications: No Home Medications 01/28/19 History of Present Illiness History of Present Illness: CARY PARK is a 28 year old male Physical Exam Vital Signs: Temp Pulse Resp BP Pulse Ox 97.7 F 74 18 103/67 98 01/29/19 00:00 01/29/19 00:00 01/29/19 00:00 01/29/19 00:00 01/29/19 00:00 Intake & Output 01/28/19 01/29/19 01/30/19 06:59 06:59 06:59 Intake Total 3150 1070 Output Total 320 Balance 2830 1070 Weight 72.121 kg 72.6 kg Results Laboratory Results: WBC 5.4 10^3/uL (4.0-10.5) 01/28/19 05:46 RBC 4.02 10^6/uL (4.35-5.55) L 01/28/19 05:46 Hgb 13.1 g/dL (13.5-17.0) L 01/28/19 05:46 Hct 38.6 % (37.9-51.0) 01/28/19 05:46 MCV 96 fl (80-97) 01/28/19 05:46 MCH 32.5 pg (27.0-33.4) 01/28/19 05:46 MCHC 33.8 g/dL (32.0-36.0) 01/28/19 05:46 RDW 13.2 % (11.5-14.0) 01/28/19 05:46 Plt Count 251 10^3/uL (150-450) 01/28/19 05:46 Lymph % (Auto) 24.2 % (13-45) 01/28/19 05:46 Reynolds % (Auto) 8.9 % (3-13) 01/28/19 05:46 Eos % (Auto) 6.9 % (0-6) H 01/28/19 05:46 Baso % (Auto) 0.4 % (0-2) 01/28/19 05:46 Absolute Neuts (auto) 3.2 10^3/uL (1.7-8.2) 01/28/19 05:46 Absolute Lymphs (auto) 1.3 10^3/uL (0.5-4.7) 01/28/19 05:46 Absolute Monos (auto) 0.5 10^3/uL (0.1-1.4) 01/28/19 05:46 Absolute Eos (auto) 0.4 10^3/uL (0.0-0.6) 01/28/19 05:46 Absolute Basos (auto) 0.0 10^3/uL (0.0-0.2) 01/28/19 05:46 Seg Neutrophils % 59.6 % (42-78) 01/28/19 05:46 Sodium 139.4 mmol/L (137-145) 01/28/19 06:20 Potassium 4.1 mmol/L (3.6-5.0) 01/28/19 06:20 Chloride 106 mmol/L (98-107) 01/28/19 06:20 Carbon Dioxide 26 mmol/L (22-30) 01/28/19 06:20 Anion Gap 7 (5-19) 01/28/19 06:20 BUN 8 mg/dL (7-20) 01/28/19 06:20 Creatinine 0.85 mg/dL (0.52-1.25) 01/28/19 06:20 Est GFR ( Amer) > 60 (>60) 01/28/19 06:20 Est GFR (Non-Af Amer) Cancelled 01/28/19 05:46 Est GFR (MDRD) Non-Af > 60 (>60) 01/28/19 06:20 Glucose 86 mg/dL (75-110) 01/28/19 06:20 Calcium 8.8 mg/dL (8.4-10.2) 01/28/19 06:20 Total Bilirubin 0.5 mg/dL (0.2-1.3) 01/28/19 06:20 Direct Bilirubin 0.1 mg/dL (0.0-0.4) 01/28/19 06:20 Neonat Total Bilirubin Not Reportable 01/28/19 06:20 Neonat Direct Bilirubin Not Reportable 01/28/19 06:20 Neonat Indirect Bili Not Reportable 01/28/19 06:20 AST 25 U/L (17-59) 01/28/19 06:20 ALT 13 U/L (<50) 01/28/19 06:20 Alkaline Phosphatase 60 U/L (38-126) 01/28/19 06:20 Troponin I < 0.012 ng/mL 01/28/19 06:20 Total Protein 6.2 g/dL (6.3-8.2) L 01/28/19 06:20 Albumin 3.4 g/dL (3.5-5.0) L 01/28/19 06:20 Lipase 24.8 U/L (23-300) 01/28/19 06:20 EGFR Cancelled 01/28/19 05:46 Urine Opiates Screen NEGATIVE 01/28/19 12:00 Urine Methadone Screen NEGATIVE 01/28/19 12:00 Ur Barbiturates Screen NEGATIVE 01/28/19 12:00 Ur Phencyclidine Scrn NEGATIVE 01/28/19 12:00 Ur Amphetamines Screen NEGATIVE 01/28/19 12:00 U Benzodiazepines Scrn NEGATIVE 01/28/19 12:00 Urine Cocaine Screen UNCONFIRMED POSITIVE 01/28/19 12:00 U Marijuana (THC) Screen NEGATIVE 01/28/19 12:00 01/28/19 01/28/19 05:46 06:20 Troponin I Cancelled < 0.012 Impressions: Chest X-Ray 01/28/19 05:15 IMPRESSION: 1. No acute pulmonary process identified. Elbow X-Ray 01/28/19 05:15 IMPRESSION: 1. No acute fracture. 2. Edema in the ventral subcutaneous soft tissues. No radiopaque foreign body. copyright 2010 [employer]- All Rights Reserved Extremity Ultrasound 01/28/19 07:01 IMPRESSION: Complex fluid collection in the left antecubital fossa with surrounding hyperemia and subcutaneous edema. The collection is concerning for an abscess. Chest/Abdomen CTA 01/28/19 10:08 IMPRESSION: Negative examination for pulmonary embolism.
[2019-01-29 16:08] VITALS: BP 150/73
== END 2019-01-29 16:28 | disposition home or self-care (01) ==
LOC: ER 04:16 → INTOOBSV 09:50 → EH 09:50 → 4N 16:09
PROVIDERS: ADMIT Surgery; ATTEND Surgery
PROC: 0H9CXZZ Drainage of Left Upper Arm Skin, External Approach (ICD-10-PCS; 2019-01-28)
PROC: 3E02340 Introduction of Influenza Vaccine into Muscle, Percutaneous Approach (ICD-10-PCS; principal; 2019-01-29)
DX: L02.414 Cutaneous abscess of left upper limb (principal); R07.9 Chest pain, unspecified; F17.200 Nicotine dependence, unspecified, uncomplicated; Z23 Encounter for immunization
CPT/HCPCS: 93005 ×2; 99285; 96361; 96374; 36415; 87040; 87070; 87205; 83690; 85025; 87075; 87077; 80053; 84484; 87186; 80307; 71045; 73080; 76882; 71275; 90686; 93010; 01710; 10060; J2795; J2250; J3490 ×6; J3010; J1885; J2405; J7060 ×2; J7050 ×2; J7030; J7120; J2704; J3370 ×2; J2543 ×2; G0378